=== PATIENT | male | born 1950 | race Caucasian/White ===

== ENCOUNTER 2023-01-06 08:08 | Outpatient (REF) | payer MEDICARE, SELFPAY ==
--- NOTE | ~2023-01-06 | FL_ITS ---
EXAMINATION: XR FLUOROSCOPY BARIUM SWALLOW WITH AIR CLINICAL INFORMATION: Dysphasia COMPARISON: None TECHNIQUE: Fluoroscopic air contrast barium swallow examination was performed utilizing standard techniques with thin and thick barium and effervescent granules. Numerous spot images were obtained. FINDINGS: Lateral cine images of the oropharynx and hypopharynx demonstrate normal swallow mechanism with normal epiglottic inversion and soft palate elevation. On the third swallow, there was laryngeal penetration of thick barium to the level of the false cords, and eventually the glottis/true cords. No subglottic aspiration seen. No nasopharyngeal reflux present. Hypopharyngeal structures appear normal without evidence of mass or diverticulum. There was no significant cricopharyngeal achalasia. Dual and single contrast images of the esophagus demonstrate normal caliber, contour, and mucosal pattern. No evidence of stricture, mass, or ulcerations identified. Primary peristaltic wave was normal, however followed by numerous tertiary nonpropulsive contractions consistent with presbyesophagus. Small type I hiatus hernia identified. Episodic mild gastroesophageal reflux was noted during the examination to the level of the aortic arch. Dual contrast and single contrast images of the stomach demonstrated normal contour and mucosal pattern without evidence of mass, ulceration, or other abnormality. Contrast freely passed into the gastric antrum and duodenal bulb without delay. Single and air-contrast images of the duodenal bulb demonstrate no abnormality. The duodenal sweep has a normal appearance, course, and mucosal fold appearance. The imaged proximal jejunum has a normal fold pattern and caliber. FLUOROSCOPY TIME: 3.9 minutes Number of Spot Images: 61 DOSE AREA PRODUCT: 52.6-9 uGy-m2 (microgray-meter squared) FL/FL barium swallow with air IMPRESSION: 1. Mild laryngeal penetration and glottic aspiration noted on thick barium, only on the third swallow. No subglottic aspiration noted. 2. Esophagus normal aside from moderate presbyesophagus. Small type I hiatus hernia noted. 3. Mild/episodic gastroesophageal reflux noted during the course of the examination. 4. Normal-appearing stomach, duodenal bulb, duodenal sweep, and proximal small bowel.
== END 2023-01-06 08:09 | disposition home or self-care (01) ==
LOC: HO.XRAY 08:08
PROVIDERS: PCP Internal Medicine; Visit Provider Otolaryngology
DX: R13.10 Dysphagia, unspecified (principal)
CPT/HCPCS: 74221

== ENCOUNTER → 2023-01-06 08:14 | Outpatient (BNV) | payer MEDICARE, SELFPAY | PROVIDERS: PCP Internal Medicine; Visit Provider Radiology Diagnostic Radiology | DX: R13.10 Dysphagia, unspecified (principal) | CPT/HCPCS: 74221 ==

== ENCOUNTER 2023-12-10 10:25 | Emergency (ER) | payer MEDICARE, SELFPAY ==
[2023-12-10 10:28] VITALS: BP 173/90; PULSE 84; RESP 16; TEMP 36.2; O2SAT 95; BMI 31.2
[2023-12-10 10:58] LABS: MANUAL DIFF FLAG NO
[2023-12-10 11:05] LABS: Basophils Absolute Auto 0.1 X10*3/uL (0.0-0.2); Basophils Percent Auto 0.8 % (0-2); Eosinophils Absolute Auto 0.2 X10*3/uL (0.0-0.4); Hematocrit 43.3 % (42.0-52.0); Hemoglobin 14.8 g/dl (14.0-18.0); Imm Gran Abs Auto 0.03 X10*3/uL (0.00-0.03); Imm Gran Pct Auto 0.4 % (0.0-0.4); Lymphocytes Absolute Auto 1.7 X10*3/uL (1.2-4.9); Lymphocytes Percent Auto 23.5 % (20-40); Mean Corpuscular HGB Conc 34.2 g/dl (31.0-36.0); Mean Corpuscular Hemoglobin 30.1 pg (27.0-33.0); Mean Corpuscular Volume 88.2 fL (80.0-98.0); Monocytes Absolute Auto 0.7 X10*3/uL (0.1-1.2); Monocytes Percent Auto 10.1 % (2-11); Neutrophils Absolute Auto 4.6 x10*3/uL (2.0-8.3); Neutrophils Percent Auto 62.2 % (45-73); Platelet Count 134 X10*3/uL (160-400); Red Blood Count 4.91 X10*6/uL (4.60-5.80); Red Cell Distribution Width 13.8 % (11.0-16.0); White Blood Count 7.3 X10*3/uL (4.8-10.8)
[2023-12-10 11:07] LABS: Prothrombin Time 11.9 SEC (11.1-13.3)
[2023-12-10 11:09] LABS: Partial Thromboplastin Time 24.7 SEC (26.0-36.8)
[2023-12-10 11:23] LABS: Alanine Aminotransferase 34 U/L (0-40); Albumin Level 3.9 g/dL (3.5-5.0); Alkaline Phosphatase 78 U/L (39-117); Anion Gap 11 (12-20); Aspartate Amino Transferase 30 U/L (5-37); Bilirubin Direct 0.2 mg/dL (0.0-0.5); Bilirubin Total 0.7 mg/dL (0.0-1.0); Blood Urea Nitrogen 12 mg/dL (9-16); Calcium 9.8 mg/dL (8.4-10.2); Carbon Dioxide 27 mmol/L (22-29); Chloride 106 mmol/L (96-108); Creatinine Clr Calc Pharmacy 86.2; Estimated Glomerular Filt Rate > 60; Glucose Random 144 mg/dL (60-115); Magnesium 1.8 mg/dL (1.6-2.6); Potassium 4.3 mmol/L (3.3-5.1); Sodium 140 mmol/L (135-145); Total Protein 8.2 g/dL (6.5-8.0)
--- NOTE | 2023-12-10 12:11 | ED_ITS ---
HPI - Wound/Laceration General Chief Complaint: Wound/Laceration Stated Complaint: bleeding testicles Time Seen by Provider: 12/10/23 11:33 Source: patient and family Mode of arrival: ambulatory Limitations: no limitations History of Present Illness HPI narrative: 73-year-old male presents from home he states he was sitting when he started to notice head and reassess with that he had urinated on himself he knows that it was blood he plays pressure but it continued to bleed so he found the came into the ER bleeding has stopped you patient states he is not on any blood thinners he denies any trauma to the area he denies chest pain cough fever nausea vomiting or diarrhea. Related Data Allergies Allergy/AdvReac Type Severity Reaction Status Date / Time No Known Allergies Allergy Verified 12/10/23 10:29 Review of Systems 2 Review of Systems: Review of systems: General: Patient denies any fever chills recent illness or falls Musculoskeletal: Denies back pain or body aches or other injuries HEENT: denies headache, runny nose, ear pain Respiratory: denies shortness of breath, cough Cardiovascular: no chest pain or palpitations : denies dysuria, frequency Abdomen: no nausea vomiting denies abdominal pain Extremities: no swelling, no pain Skin: no diaphoresis Yes all other systems are reviewed and are negative PMFSH Social History Social History Advance Directives: No Physical Exam 2 Vital Signs: Vital Signs: Last Vital Signs Temp 97.2 F 12/10/23 10:28 Pulse 84 12/10/23 10:28 Resp 16 12/10/23 10:28 BP 173/90 H 12/10/23 10:28 Pulse Ox 95 12/10/23 10:28 O2 Del Method Room Air 12/10/23 10:28 BMI result Body Mass Index 31.2 General: Well-appearing well-nourished in no signs of distress HEENT: Normocephalic atraumatic Neck: No signs of JVD, no masses no tenderness or lymphadenopathy Cardiovascular: Regular rate and rhythm Respiratory: Clear to auscultation bilaterally Abdomen: Soft nontender no masses testicles examined there are multiple varicose veins nontender there was no more bleeding Extremities: Normal pedal pulses no signs of edema Skin: Dry warm no rashes Back: No tenderness full ROM Medical Decision Making Lab Data 12/10/23 10:54 12/10/23 10:54 Labs: Lab Results 12/10/23 Range/Units 10:54 WBC 7.3 (4.8-10.8) X10*3/uL RBC 4.91 (4.60-5.80) X10*6/uL Hgb 14.8 (14.0-18.0) g/dl Hct 43.3 (42.0-52.0) % MCV 88.2 (80.0-98.0) fL MCH 30.1 (27.0-33.0) pg MCHC 34.2 (31.0-36.0) g/dl RDW 13.8 (11.0-16.0) % Plt Count 134 L (160-400) X10*3/uL MPV 11.0 (9.4-12.4) fL Immature Gran % (Auto) 0.4 (0.0-0.4) % Neut % (Auto) 62.2 (45-73) % Lymph % (Auto) 23.5 (20-40) % [place] % (Auto) 10.1 (2-11) % Eos % (Auto) 3.0 (0-4) % Baso % (Auto) 0.8 (0-2) % Lymph # (Auto) 1.7 (1.2-4.9) X10*3/uL [place] # (Auto) 0.7 (0.1-1.2) X10*3/uL Eos # (Auto) 0.2 (0.0-0.4) X10*3/uL Baso # (Auto) 0.1 (0.0-0.2) X10*3/uL Abs Immat Gran (auto) 0.03 (0.00-0.03) X10*3/uL Absolute Neuts (auto) 4.6 (2.0-8.3) x10*3/uL Absolute Nucleated RBC 0.000 (0.0-0.012) X10*3/uL Nucleated RBC % (auto) 0.0 (0.0-0.2) /100WBC PT 11.9 (11.1-13.3) SEC INR 1.0 (0.9-1.1) APTT 24.7 L (26.0-36.8) SEC Sodium 140 (135-145) mmol/L Potassium 4.3 (3.3-5.1) mmol/L Chloride 106 (96-108) mmol/L Carbon Dioxide 27 (22-29) mmol/L Anion Gap 11 L (12-20) BUN 12 (9-16) mg/dL Creatinine 0.94 (0.5-1.4) mg/dL Estim Creat Clear Calc 86.2 Estimated GFR > 60 Random Glucose 144 H (60-115) mg/dL Calcium 9.8 (8.4-10.2) mg/dL Magnesium 1.8 (1.6-2.6) mg/dL Total Bilirubin 0.7 (0.0-1.0) mg/dL Direct Bilirubin 0.2 (0.0-0.5) mg/dL AST 30 (5-37) U/L ALT 34 (0-40) U/L Alkaline Phosphatase 78 (39-117) U/L Total Protein 8.2 H (6.5-8.0) g/dL Albumin 3.9 (3.5-5.0) g/dL Procedures Procedure Narrative Procedure Narrative: I could not identify the exact spot where the bleeding had come from I did clean the area with saline and then he has Dermabond over all the varicose veins to make sure no more bleeding would resume bleeding and already stopped the time I saw the patient. Discharge Plan Discharge Clinical Impression: Bleeding from varicose vein Patient Disposition: Home, Self-Care Instructions: Phlebitis (ED) Additional Instructions: You were seen today for bleeding from a varicose vein and your scrotum. The bleeding. At the time he arrived here. You do have sent everything was normal you had some Dermabond placed over the wound and the bleeding was resolved. If you have worsening bleeding or any other concerns please return to the emergency department. Print Language: Estonian
[2023-12-10 12:19] VITALS: BP 160/79; PULSE 73; RESP 16; TEMP 36.8; O2SAT 95
[2023-12-10 12:52] VITALS: BP 160/79; PULSE 73; RESP 16; TEMP 36.8; O2SAT 95
== END 2023-12-10 12:52 | disposition home or self-care (01) ==
PROVIDERS: Physician Assistant; Emergency Provider Student in an Organized Health Care Education/Training Program; PCP Internal Medicine
DX: N50.1 Vascular disorders of male genital organs (principal)
CPT/HCPCS: 36415; 80048; 80076; 83735; 85025; 85610; 85730; 99283

== ENCOUNTER 2024-01-06 13:26 | Outpatient (REF) | payer MEDICARE, SELFPAY ==
[2024-01-06 14:58] LABS: Erythrocyte Sedimentation Rate 23 MM/HR (0-15)
== END 2024-01-06 13:27 | disposition home or self-care (01) ==
LOC: HO.LAB 13:26
PROVIDERS: PCP Internal Medicine; Visit Provider Psychiatry & Neurology Neurology
DX: M33.20 Polymyositis, organ involvement unspecified (principal)
CPT/HCPCS: 36415; 82550; 85652

== ENCOUNTER 2024-02-04 09:54 | Outpatient (REF) | payer MEDICARE, SELFPAY ==
--- NOTE | ~2024-02-04 | MR_ITS ---
EXAMINATION: MR BRAIN WITHOUT CONTRAST CLINICAL INFORMATION: Brain lesion COMPARISON: None available. TECHNIQUE: MRI of the brain was obtained using routine sequences without contrast. FINDINGS: No acute intracranial hemorrhage or infarct. Scattered and confluent periventricular and deep white matter T2/FLAIR hyperintensities, nonspecific however commonly seen with small vessel ischemic disease. Mild global cerebral atrophy. No midline shift or hydrocephalus. No acute extra-axial fluid collections. The osseous structures are unremarkable. There is a well-circumscribed lesion involving the left parietal scalp tissues. The pituitary gland, pineal gland and remaining midline structures are unremarkable. Sequelae of bilateral lens replacement. Otherwise, no acute orbital pathology. Minimal mucosal thickening of the paranasal sinuses. The mastoid air cells are clear. MR/MR head/brain wo con IMPRESSION: 1. No acute intracranial abnormalities. 2. Chronic microangiopathy. 3. Well-circumscribed cystic lesion involving the left parietal scalp tissues most suggestive of an epidermal inclusion cyst. Electronically signed by: Javon Pak MD 03/28/2024 07:27 PM [facility]
== END 2024-02-04 09:55 | disposition home or self-care (01) ==
LOC: HO.MRI 09:54
PROVIDERS: PCP Internal Medicine; Visit Provider Psychiatry & Neurology Neurology
DX: G93.9 Disorder of brain, unspecified (principal)
CPT/HCPCS: 70551

== ENCOUNTER 2025-01-20 01:31 | Inpatient (IN) | payer MEDICARE, SELFPAY ==
[2025-01-20] VITALS (28 sets, daily range): BP systolic 114–173; BP diastolic 54–99; PULSE 43–123; RESP 17–37; TEMP 36.4–37.5; O2SAT 86–106; BMI 30.5; BMI 31.5
--- NOTE | 2025-01-20 | ECG_ITS ---
Test Reason : CP/COVID POSITIVE Blood Pressure : */* mmHG Vent. Rate : 110 BPM Atrial Rate : 110 BPM P-R Int : 166 ms QRS Dur : 90 ms QT Int : 326 ms P-R-T Axes : 40 -40 76 degrees QTcB Int : 441 ms Sinus tachycardia Left axis deviation Anterolateral infarct (cited on or before 20-Jan-2025) Abnormal ECG When compared with ECG of 20-Jan-2025 01:46, No significant change was found Referred By: Darby Plaza Electronically Signed By: CATRACHITO PYLE
--- NOTE | ~2025-01-20 | CT_ITS ---
CLINICAL HISTORY: PE CT angiography chest with contrast. 3D Postprocessing. Comparison: None provided Findings: The heart is normal size. RV/LV ratio is normal. The thoracic aorta is normal caliber. No acute pulmonary embolus. Nonhomogeneous, solid 7.7 cm left thyroid lobe nodule. Further characterization with ultrasound recommended. A few subsegmental lingular and right basilar atelectasis/infiltrates. Left basilar atelectasis. Query periesophageal varices in the vicinity of the GE junction. No acute fractures. IMPRESSION: 1. No PE. 2. Nonhomogeneous, solid 7.7 cm left thyroid lobe nodule. Further characterization with ultrasound recommended. 3. Query periesophageal varices in the vicinity of the GE junction. 4. A few subsegmental lingular and right basilar atelectasis/infiltrates. Left basilar atelectasis. This document has been electronically signed by: Belle Yates MD on 01/20/2025 07:17:40
--- NOTE | ~2025-01-20 | US_ITS ---
EXAMINATION: US THYROID HISTORY: Thyroid Nodule TECHNIQUE: Real-time grayscale ultrasound imaging was performed and images were reviewed. COMPARISON: Correlation is made with a chest CT dated 01/20/2025. FINDINGS: SIZE: The right thyroid lobe measures 2.8 x 1.1 x 1.1 cm. The left thyroid lobe measures 8.8 x 4.4 x 5.9 cm. The isthmus measures 7 mm. FLOW: Flow to the gland is hypervascular on the left. ECHOGENICITY: The echotexture of the gland is heterogeneous on the left. NODULES: There is an ill-defined 1.3 x 0.5 x 0.5 cm hypoechoic area at the upper pole of the right thyroid lobe which does not clearly represent a nodule. There is a dominant nodule on the left with imaging characteristics as described below: Nodule #: 1 Location: The portion of the left thyroid lobe measuring 7.3 x 4.4 x 5.9 cm. Shape: Wider than tall (0 points) Margins: Ill-defined (0 points) Echotexture: Isoechoic (1 point) Composition: Solid (2 points) Calcifications: None (0 points) Total points: 3 TIRADS: TR3: Mildly suspicious. US/US thyroid IMPRESSION: Dominant nodule in the left thyroid lobe as described. According to ACR TI-RADS guidelines, ultrasound-guided fine-needle aspiration is recommended. ACR TI-RADS Guidelines TR1 (0 points): Benign. No follow-up or biopsy required TR2 (2 points): Not Suspicious. No biopsy or follow up indicated TR3 (3 points): Mildly Suspicious. FNA if >= 2.5 cm, Follow if >= 1.5 cm TR4 (4-6 points): Moderately Suspicious. FNA if >= 1.5 cm, Follow if >= 1.0 cm TR5 (>=7 points): Highly Suspicious. FNA if >= 1.0 cm, Follow if >= 0.5 cm Electronically signed by: Juma Rao MD 01/23/2025 07:05 AM EDT
--- NOTE | ~2025-01-20 | XR_ITS ---
CLINICAL HISTORY: sob 1 view chest x-ray Comparison: None provided Findings: Normal size heart. No acute fracture. Small left-sided effusion blunts the costophrenic sulcus with mild left basilar subsegmental atelectasis or infiltrate. IMPRESSION: Small left-sided effusion blunts the costophrenic sulcus with mild left basilar subsegmental atelectasis or infiltrate. This document has been electronically signed by: Marco Pompa MD, PHD on 01/20/2025 04:26:24
[2025-01-20 02:04] LABS: Hematocrit 48.8 % (42.0-52.0); Hemoglobin 16.9 g/dl (14.0-18.0); Imm Gran Abs Auto 0.03 X10*3/uL (0.00-0.03); Imm Gran Pct Auto 0.3 % (0.0-0.4); Lymphocytes Absolute Auto 1.4 X10*3/uL (1.2-4.9); MANUAL DIFF FLAG SCAN; Mean Corpuscular HGB Conc 34.6 g/dl (31.0-36.0); Mean Corpuscular Hemoglobin 29.9 pg (27.0-33.0); Mean Corpuscular Volume 86.4 fL (80.0-98.0); NRBC Abs Auto 0.000 X10*3/uL (0.0-0.012); NRBC Pct Auto 0.0 /100WBC (0.0-0.2); Platelet Count 157 X10*3/uL (160-400); Red Blood Count 5.65 X10*6/uL (4.60-5.80); SCAN SMEAR FLAG 1; White Blood Count 10.9 X10*3/uL (4.8-10.8)
[2025-01-20 02:04] LABS: Venous Blood Gas Refer to POC result
[2025-01-20 02:05] LABS: VBG HCO3 29 mmol/L (22-26); VBG O2 % Saturation 60.0 %
[2025-01-20 02:11] LABS: INTERNATIONAL NORM RATIO 1.1 (0.9-1.1); Prothrombin Time 13.0 SEC (10.9-12.4)
[2025-01-20 02:19] LABS: Alanine Aminotransferase 56 U/L (0-40); Albumin Level 4.6 g/dL (3.5-5.0); Alkaline Phosphatase 77 U/L (39-117); Anion Gap 16 (12-20); Aspartate Amino Transferase 52 U/L (5-37); Blood Urea Nitrogen 19 mg/dL (9-16); Calcium 9.0 mg/dL (8.4-10.2); Carbon Dioxide 28 mmol/L (22-29); Chloride 104 mmol/L (96-108); Creatinine Clr Calc Pharmacy 66.9; Estimated Glomerular Filt Rate > 60; Potassium 3.8 mmol/L (3.3-5.1); Sodium 144 mmol/L (135-145); Total Protein 8.6 g/dL (6.5-8.0)
[2025-01-20 02:26] LABS: NT Pro B Type Natriuretic Pept 59.2 pg/mL (<300)
--- NOTE | 2025-01-20 02:32 | ED_ITS ---
HPI - General Adult General Chief complaint: Dyspnea Stated complaint: + COVID Time Seen by Provider: 01/20/25 01:52 Source: patient Mode of arrival: ambulatory Limitations: no limitations History of Present Illness ED Provider: Dr. Plaza [facility] narrative: 74-year-old male history of lung cancer status post lumpectomy presented hospital today for evaluation of shortness of breath. Upon arrival to the room patient was hypoxic. He is satting in the mid 80s. Respiratory rate in the upper 40s. Patient was diagnosed with COVID 2 days ago has been taking Paxlovid. stated that patient was getting very short of breath when he ambulates and move around. It took a while for for them to get him to the ER. Related Data Allergies Allergy/AdvReac Type Severity Reaction Status Date / Time No Known Allergies Allergy Verified 01/20/25 01:45 Review of Systems 2 Review of Systems: Pertinent review of systems as mentioned in HPI. All other system otherwise negative. [facility] Past Medical History [facility] Narrative: Medical history as mentioned in [facility] Social History Social History Smoked in Last 30 Days: No Advance Directives: No Advance Directives Information Provided: Yes Physical Exam ED Exam Exam: General: Appears to be in respiratory distress Head: Normacephalic, atraumatic ENT: oral mucosa moist, neck supple, no tracheal deviation Cardiovascular: Tachycardic rate, regular rhythm, no murmurs, rubbing, gallops Respiratory: Diminished lung sounds bilaterally we will rales Gastrointestinal: Soft, non distended, non tender, non guarding Extremities: No limb pain or swelling, no calf tenderness Neurological: Awake and alert, no facial droop noted Skin: Warm and dry Psychiatric: Appropriate mood and thoughts Vital Signs: Vital Signs - 24 hr 01/20/25 01:35 01/20/25 02:00 01/20/25 02:08 Temperature 98.4 F 98.7 F Pulse Rate 102 H 102 H Respiratory Rate 24 H 26 H 22 H Blood Pressure 169/89 H 146/85 H Pulse Oximetry 86 L 92 Oxygen Delivery Method Room Air High Flow Nasal Cannula Oxygen Flow Rate 45 Fraction of Inspired Oxygen 45 01/20/25 02:08 01/20/25 03:05 01/20/25 03:32 Temperature 98.8 F Pulse Rate 102 H 110 H Respiratory Rate 22 H 26 H 20 Blood Pressure 144/84 H Pulse Oximetry 95 Oxygen Delivery Method High Flow Nasal Cannula Oxygen Flow Rate 50 Fraction of Inspired Oxygen 50 01/20/25 06:25 Temperature 99.5 F Pulse Rate 123 H Respiratory Rate 37 H Blood Pressure 173/99 H Pulse Oximetry 95 Oxygen Delivery Method High Flow Nasal Cannula Oxygen Flow Rate Fraction of Inspired Oxygen BMI result Body Mass Index 30.5 Medications Administered Discontinued Medications Generic Name Dose Route Start Last Admin Trade Name Freq PRN Reason Stop Dose Admin Albuterol Sulfate 5 mg/ 0 mg 01/20/25 01:58 01/20/25 02:43 Albuterol/Ipratropium 3 ml INHALE 01/20/25 01:59 1 each ONCE ONE Administration Iohexol 65 ml 01/20/25 06:02 01/20/25 06:03 Iohexol 350 Mg/Ml 100 Ml Infus..Btl IV 01/20/25 06:03 65 ml ONCE ONE Administration Morphine Sulfate 4 mg 01/20/25 04:16 01/20/25 05:06 Morphine Sulfate 4 Mg/Ml Cartridge IVPUSH 01/20/25 04:17 Not Given ONCE ONE Protocol Medical Decision Making Medical Decision Making MDM Narrative: This is a 74-year-old male history of lung cancer status post lobectomy 9 years ago presented hospital today for respiratory distress. Suspect patient has viral pneumonia COVID. Patient is likely has progression of COVID. However given his COVID status we will need to rule out PE history of lung cancer as well. CTA of the chest will be obtained. Patient does have tachycardia. And respiratory rate in the upper 40s. Patient is started on high-flow nasal cannula. We will obtain lab work for a lactic acid, CBC chemistry. Received patient's lab work. Patient has slight leukocytosis 10.9, patient is COVID positive. Patient respiratory status is likely secondary to COVID infection. Patient's lactic acid is not elevated. At 06:28 01/20/25 Infection was suspected at this time. IV Zosyn, IV azithromycin will be given the patient. Patient has remained tachypneic on high-flow nasal cannula at 45 L. We will plan to transition to BiPAP. Patient was placed on BiPAP. His respiratory rate has improved to 30. The patient's satting at 94% at this time. Given patient's presentation and respiratory status. Patient will be admitted to the ICU for further close airway watch. I did personally reviewed the CTA of the chest. I do not identify any large pulmonary embolism. Official read is currently pending. Differential Diagnosis Differential Diagnoses: The differential diagnosis associated with the presentation includes COVID, influenza, viral pneumonia, lung cancer, PE Admission/Observation Consideration of admission/observation: Escalation of care including admission/observation considered Consult Healthcare Provider Management of the patient was discussed with: Pre Press Proofer (ICU) Lab Data MDM Lab Attestation statement: I reviewed the patient's lab results. 01/20/25 01:56 01/20/25 01:56 Labs: Lab Results 01/20/25 01/20/25 01/20/25 Range/Units 01:56 02:01 03:22 WBC 10.9 H (4.8-10.8) X10*3/uL RBC 5.65 (4.60-5.80) X10*6/uL Hgb 16.9 (14.0-18.0) g/dl Hct 48.8 (42.0-52.0) % MCV 86.4 (80.0-98.0) fL MCH 29.9 (27.0-33.0) pg MCHC 34.6 (31.0-36.0) g/dl RDW 13.8 (11.0-16.0) % Plt Count 157 L (160-400) X10*3/uL MPV 11.1 (9.4-12.4) fL Immature Gran % (Auto) 0.3 (0.0-0.4) % Neut % (Auto) 72.5 (45-73) % Lymph % (Auto) 12.6 L (20-40) % [place] % (Auto) 14.4 H (2-11) % Eos % (Auto) 0.0 (0-4) % Baso % (Auto) 0.2 (0-2) % Lymph # (Auto) 1.4 (1.2-4.9) X10*3/uL [place] # (Auto) 1.6 H (0.1-1.2) X10*3/uL Eos # (Auto) 0.0 (0.0-0.4) X10*3/uL Baso # (Auto) 0.0 (0.0-0.2) X10*3/uL Abs Immat Gran (auto) 0.03 (0.00-0.03) X10*3/uL Absolute Neuts (auto) 7.9 (2.0-8.3) x10*3/uL Absolute Nucleated RBC 0.000 (0.0-0.012) X10*3/uL Nucleated RBC % (auto) 0.0 (0.0-0.2) /100WBC Smear Tech's Comments VERIFIED PT 13.0 H (10.9-12.4) SEC INR 1.1 (0.9-1.1) VBG pH 7.35 (7.32-7.43) VBG pCO2 52 mmHg VBG pO2 40 mmHg VBG HCO3 29 H (22-26) mmol/L VBG O2 Saturation 60.0 % VBG Base Excess 2.7 mmol/L Sodium 144 (135-145) mmol/L Potassium 3.8 (3.3-5.1) mmol/L Chloride 104 (96-108) mmol/L Carbon Dioxide 28 (22-29) mmol/L Anion Gap 16 (12-20) BUN 19 H (9-16) mg/dL Creatinine 1.18 (0.5-1.4) mg/dL Estim Creat Clear Calc 66.9 Estimated GFR > 60 Random Glucose 187 H (60-115) mg/dL Lactic Acid 1.7 (0.5-2.0) mmol/L Calcium 9.0 D (8.4-10.2) mg/dL Total Bilirubin 0.9 (0.0-1.0) mg/dL AST 52 H (5-37) U/L ALT 56 H (0-40) U/L Alkaline Phosphatase 77 (39-117) U/L Troponin I High Sens 11.6 (<3.5-35.0) ng/L NT-Pro-B Natriuret Pep 59.2 (<300) pg/mL Total Protein 8.6 H (6.5-8.0) g/dL Albumin 4.6 (3.5-5.0) g/dL Influenza Type A (PCR) NEGATIVE (Negative) Influenza Type B (PCR) NEGATIVE (Negative) RSV RNA Qual (PCR) NEGATIVE (Negative) SARS-CoV-2 RNA (RT-PCR) POSITIVE A (Negative) Independent Interpretation I performed an independent interpretation of an: Plain X-Ray and CT Scan Radiology Impression Discussion of test interpretation with radiology: I have reviewed the radiologist's reading. Critical Care Time Critical Care Time Critical Care Time: Yes Total Critical Care Time: 55 Attestation: Time is exclusive of separately billable procedures. Time includes: direct patient care, patient reassessment, coordination of patient care, interpretation of data (laboratory data, pulse oximetry, arterial blood gases and chest xrays), review of patient's medical records, medical consultation and documentation of patient care. Procedures excluded from critical care time: central intravenous line placement and electrocardiography. Discharge Plan Discharge Clinical Impression: COVID-19, Respiratory failure Patient Disposition: Admitted As Inpatient Print Language: Slovak
[2025-01-20] MEDS: Albuterol Sulfate 5 MG, Albuterol/Iprat 2.5/0.5MG 3 ML 3 ML INHALE (02:43)
[2025-01-20 02:44] LABS: Resp Syncy Virus RNA Qual PCR NEGATIVE (Negative); SARS COV2 PCR INHOUSE POSITIVE (Negative)
--- OUTSIDE RECORDS SUMMARY | 2025-01-20 02:47 | XMS_ITS | Clinical Summary ---
Author Organization [facility] Address [address] [place] [address] Phone Care Team Providers Care [employer]ed [employer] Laminator Name Role Phone Stephen Peguero MD Primary Care Provider [phone] Allergies Active Allergy Reactions Criticality Noted Date Comments Duloxetine Hcl 11/16/2015 ? syncope Glipizide 11/15/2015 Syncope? Lactose Diarrhea Low 10/16/2021 Milk Containing Products (Dairy) Diarrhea 09/2012 Algwnxi-Rjv-Mdm Reductase Inhibitors Other Medium 12/24/2016 Myopathy Tilactase Diarrhea Low 05/03/2018 Medications aspirin 81 mg EC tablet Take 1 Tab by mouth daily. 3 Active blood-glucose meter (FREESTYLE LITE METER [facility]) Use to check BS daily 2 Active cholecalcifero l (VITAMIN D-3) 50 mcg (2,000 unit) tablet Take 0.5 tablets (1,000 Units total) by mouth 1 (one) time each day. 4 Active flash glucose sensor (FREESTYLE KARLA 2 SENSOR [facility]) 1 Device by Does not apply route every 14 days. 3 Active FREESTYLE LANCETS [facility] 2 Active blood sugar diagnostic (FreeStyle Lite Strips) test strip Use to check BS daily 3 Active insulin syringe-needle U-100 1 mL 31 gauge x 5/16 syringe Use 4 needles per day 4 Active insulin aspart, niacinamide, (Fiasp FlexTouch U-100 Insulin) 100 unit/mL (3 mL) injection pen INJECT SUBCUTANEOUSLY 3 TIMES A DAY WITH MEALS PER SCALE: 100-150 14 UNITS, 151-200 15 UNITS, 201-250 16 UNITS, 251-300 17 UNITS, 301-350 18 UNITS, 351-400 19 UNITS. 45 mL 5 5 Active multivitamin with minerals tablet Take 1 tablet by mouth 1 (one) time each day. Active insulin glargine,hum.r ec.anlog (Basaglar KwikPen U-100 Insulin) 100 unit/mL (3 mL) injection pen Inject 70 Units into the skin daily. 45 mL 11 5 Active Ozempic 1 mg/dose (4 mg/3 mL) injection pen INJECT 1MG SUBCUTANEOUSLY ONCE A WEEK 9 mL 1 5 Active Active Problems Problem Noted Date Diagnosed Date Elevated LFTs 12/31/2020 Overview (02/18/2024): US liver pending. Thyroid nodule 12/30/2016 Overview (02/18/2024): Last Assessment & Plan: Fine-needle aspiration 08/13/16 benign. Follow-up ultrasound maximum dimension increased to 7.5 cm from 5.1 cm on ultrasound of 07/02/2018. I recommended rebiopsy but the patient declines at the current time. 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 Overview (02/18/2024): HMG CoA reductase AB >200; rx IVIG Dr Santizo;CK 5000 11/20 Polymyositis ([facility] V24, [facility] V28) 10/11/19 17 Diabetes mellitus type 2 wit h neurological manifestations ([facility]/HCC V24, [facility]/HCC V28) 02/25/2016 Hypertension 08/01/2014 Pilar cyst 01/30/2014 Microalbuminuria 07/05/2012 DM (diabetes mellitus), type 2 with renal complications (CMS/HCC V24, CMS/HCC V28) 07/05/2012 Diabetic neuropathy (CMS/HCC V24, [facility] V28) 0 07/05/2012 Vertigo 06/02/2012 Depressive disorder 05/19/2006 Encounters Date Type Department Care Team Description 01/04/2025 9:00 AM EDT Consult Vascular Surgery - [place] [address] [place] [phone] Constance Villafuerte MD Venous insufficiency (chronic) (peripheral) (Primary Dx); Varicose veins of right lower extremity with pain 11/21/2024 1:30 PM EDT Office Visit Orthopedic Surgery [facility] [address] [facility] [address] [place] [phone] Jaskaran Arellano DPM Controlled type 2 diabetes mellitus with neuropathy ([facility] V24, [facility] V28) (Primary Dx); Arthritis of both feet; Ingrown right big toenail; Onychomycosis 11/09/2024 9:45 AM EDT Office Visit Endocrinology [address] [phone] Amber Rodriguez PA Diabetes mellitus type 2 with neurological manifestations ([facility] V24, [facility] V28) (Primary Dx); Secondary hypertension; Microalbuminuria; Thyroid nodule from Last 3 Months Immunizations Name Administration Dates Next Due Pneumococcal polysaccharide 23 valent (Pneumovax 23) 2yo and older 06/11/2012 Tdap Tetanus diptheria acell ular pertussis (Boostrix; Adacel) 7yo and older 07/05/2012 Surgical History Surgery Date Site/Laterality Comments TONSILLECTOMY PROCEDURE: HISTORICAL TONSILLECTOMY MULTIPLE TOOTH EXTRACTIONS PROCEDURE: HISTORICAL DENTAL EXTRACTION Medical History Medical History Date Comments Depressive disorder, not els ewhere classified 05/19/2006 DX:Depressive disorder, not elsewhere classified Vertigo 06/02/2012 DX:Vertigo Sinusitis 06/02/2012 DX:Sinusitis Hyperglycemia 06/02/2012 DX:Hyperglycemia Neuropathy, diabetic (CMS/HC C V24, [facility]/HCC V28) 07/05/2012 DX:Neuropathy, diabetic (HCC ) Myalgia 10/06/2012 DX:Myalgia Microalbuminuria 07/05/2012 DX:Microalbumin uria Diabetic neuropathy (CMS/HCC V24, CMS/HCC V28) 07/05/2012 DX:Diabetic neuropathy (HCC) Diabetes mellitus type 2 wit h neurological manifestations ([facility] V24, [facility] V28) 02/25/2016 DX:Diabetes mellitus type 2 with neurological manifestations (HCC) DM (diabetes mellitus), type 2 with renal complications (CMS/HCC V24, CMS/HCC V28) 07/05/2012 DX:DM (diabetes mellitus), t ype 2 with renal complications (HCC) 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 Family History Medical History Relation Name Comments No Known Problems Daughter 1 No Known Problems Daughter [address], stroke dece ased Diabetes Mother Other: heart Sister 1 heart condition No Known Problems Sister 2 No Known Problems Son Relation Name Status Comments Daughter 1 Alive Daughter 2 Alive Father Mother Sister 1 Sister 2 Alive Son Alive Social History Tobacco Use Types Packs/Day Years Used Date Smoking Tobacco: Never Smokeless Tobacco: Never Tobacco Cessation:Counseling Given: Not Answered Alcohol Use Standard Drinks/Week Comments No 0 (1 standard drink = 0.6 oz pur e alcohol) Sex and Gender Information Value Date Recorded Sex Assigned at Not on file Legal Sex Male 1:24 AM EST Gender Identity Not on file Sexual Orientation Not on file Obstetrics History Last Filed Vital Signs Vital Sign Reading Time Taken Comments Blood Pressure 147/82 01/04/2025 8:45 AM EDT Pulse 78 01/04/2025 8:45 AM EDT Temperature 36.3 C (97.3 F) 11/09/2024 10:02 AM EDT Respiratory Rate 15 07/26/2024 1:26 PM EDT Oxygen Saturation 98% 07/27/2024 9:42 AM EDT Inhaled Oxygen Concentration - - Weight 104 kg (229 lb) 01/04/2025 8:45 AM EDT Height 177.8 cm (5' 10 ) 01/04/2025 8:45 AM EDT Body Mass Index 32.86 01/04/2025 8:45 AM EDT Plan of Treatment Upcoming Encounters Date Type Department Care Team (Late st Contact Info) Description 01/24/2025 1:45 PM EDT Office Visit Orthopedic Surgery [place] [id number] [phone] Jaskaran Arellano, BESSIE 175 [facility] [address] [place] [phone] 02/16/2025 10:00 AM EDT Office Visit Adult Medicine [facility] [address] [place], [place] [phone] Chris Collier PA [address] [place], [place] 03/14/2025 8:30 AM EST Ancillary Procedure [facility] [address] [place] [phone] 04/05/2025 10:30 AM EST Office Visit Vascular Surgery - [place] [address] [place] [phone] Constance Villafuerte MD [address] [place] [phone] 05/12/2025 9:45 AM EST Office Visit Endocrinology [address] [phone] Amber Rodriguez PA [address] [place] [address] Health Maintenance Due Date Last Done Comments Diabetes: Annual Foot Exam 07/22/1961 Zoster Vaccines (1 of 2) 07/22/1970 RSV Immunization Adult Patients (1 - Risk 60-74 years 1-dose series) 2011 Pneumococcal Vaccine: 50+ Years (2 of 2 - PCV) 06/11/2013 06/11/2012 COVID-19 Vaccine (3 - Pfizer risk series) 10/19/2020 09/21/2020, 08/31/2020 Colorectal Cancer Screening: Stool Based Tests (FOBT/FIT) 04/06/2022 Social Influencers of Health Screening 04/06/2022 DTaP,Tdap,and Td Vaccines (2 - Td or Tdap) 07/05/2022 07/05/2012 Depression Screening 05/04/2024 12/07/2023 Falls Risk Assessment 12/06/2024 12/07/2023 Medicare Annual Wellness Visit 12/06/2024 12/07/2023 Influenza Vaccine (#1) 2025 Diabetes: Blood Sugar Control Test (HGBA1C) 05/12/2025 11/09/2024, 04/29/2024, 12/07/2023, Additional history exists Diabetes: Annual Retina Eye Exam 06/07/2025 06/07/2024, 02/20/2023 Diabetes: Annual Urine Albumin-Creatinine Ratio (uACR) 07/26/2025 07/26/2024, 07/27/2023 Diabetes: Annual GFR (Glomerular Filtration Rate) 07/26/2025 07/26/2024, 07/27/2023 Hypertension/CHF/CAD Annual BMP Blood Test 07/26/2025 07/26/2024, 07/27/2023 Cholesterol Screening (Lipid Panel) 07/26/2029 07/26/2024, 07/27/2023 Hepatitis C Screening Completed 04/02/2013 HIB Vaccines Aged Out No longer eligi ble based on patient's age to complete this topic HPV Vaccines Aged Out No longer eligi ble based on patient's age to complete this topic Hepatitis A Vaccines Aged Out No long er eligible based on patient's age to complete this topic Hepatitis B Vaccines Aged Out No long er eligible based on patient's age to complete this topic IPV Vaccines Aged Out No longer eligi ble based on patient's age to complete this topic MMR Vaccines Aged Out No longer eligi ble based on patient's age to complete this topic Meningococcal ACWY Vaccine Aged Out N o longer eligible based on patient's age to complete this topic Meningococcal B Vaccine Aged Out No l onger eligible based on patient's age to complete this topic RSV Immunization Patients Under 20 months Aged Out No longer eligible based on patient's age to complete this topic Varicella Vaccines Aged Out No longer eligible based on patient's age to complete this topic Procedures Procedure Name Priority Date/Time Associated Diagnosis Comments HEMOGLOBIN A1C Routine 11/09/2024 10:51 AM EDT Diabetes mellitus type 2 with neurological manifestations ([facility] V24, [facility] V28) MICROALBUMIN CREATININE URINE RATIO Routine 07/26/2024 2:33 PM EDT Type 2 diabetes mellitus with other diabetic kidney complication, with long-term current use of insulin ([facility] V24, [facility] V28) COMPREHENSIVE METABOLIC PANEL Routine 07/26/2024 2:33 PM EDT Type 2 diabetes mellitus with other diabetic kidney complication, with long-term current use of insulin ([facility] V24, [facility] V28) Primary hypertension LIPID PANEL WITH REFLEX TO DIRECT LDL Routine 07/26/2024 2:33 PM EDT Type 2 diabetes mellitus with other diabetic kidney complication, with long-term current use of insulin ([facility] V24, [facility] V28) DEPRESSION SCREENING Routine 12/07/2023 FALLS RISK ASSESSMENT Routine 12/07/2023 DIABETES EYE EXAM Routine 02/20/2023 HEPATITIS C SCREENING Routine 04/02/2013 from Last 3 Months or Most Recently Relevant to Health Maintenance Results * (ABNORMAL) Hemoglobin A1c (11/09/2024 10:51 AM EDT) Hemoglobin A1C 6.6(H) <6.5 % LAB CHEMISTRY METHOD 11/10/2024 12:02 PM EDT [facility] Mean Bld Glu Estim. 143 mg/dL LAB CHEMISTRY METHOD 11/10/2024 12:02 PM EDT [facility] Blood Venous blood specimen / Unknown Venipuncture / Unknown 11/09/2024 10:51 AM EDT 11/09/2024 10:51 AM EDT us Amber VO LAB BLOOD ORDERABLES Final Result [facility] [address] [place] [address], [place] [phone] * (ABNORMAL) Lipid panel with reflex to direct LDL (07/26/2024 2:33 PM EDT) Cholesterol 188 0 - 200 mg/dL LAB CHEMISTRY METHOD 07/26/2024 6:52 PM EDT [facility] Triglycerides 243(H) 0 - 150 mg/dL LAB CHEMISTRY METHOD 07/26/2024 6:52 PM EDT [facility] HDL 48 >=40 mg/dL LAB CHEMISTRY METHOD 07/26/2024 6:52 PM EDT [facility] LDL Calculated 91 0 - 100 mg/dL LAB CHEMISTRY METHOD 07/26/2024 6:52 PM EDT [facility] VLDL Cholesterol Alex 48.6 mg/dL LAB CHEMISTRY METHOD 07/26/2024 6:52 PM EDT [facility] Non HDL Chol. (LDL+VLDL) 140 <145 mg/dL LAB CHEMISTRY METHOD 07/26/2024 6:52 PM EDT [facility] Chol/HDL Ratio 3.9 0.0 - 4.4 LAB CHEMISTRY METHOD 07/26/2024 6:52 PM EDT [facility] Blood Venous blood specimen / Unknown Venipuncture / Unknown 07/26/2024 2:33 PM EDT 07/26/2024 2:33 PM EDT us Stephen Peguero MD LAB BLOOD ORDERABLES Final Resu lt [facility] [address] [place] [address], * (ABNORMAL) Microalbumin creatinine urine ratio (07/26/2024 2:33 PM EDT) Creatinine, Urine 183.0 mg/dL LAB CHEMISTRY METHOD 07/26/2024 5:37 PM EDT [facility] Microalb, Ur 191.0(H) 0.0 - 29.0 mg/L LAB CHEMISTRY METHOD 07/26/2024 5:37 PM EDT [facility] Microalb/Crea t Ratio 104(H) <30 mg/g creat LAB CHEMISTRY METHOD 07/26/2024 5:37 PM EDT [facility] Urine Urine specimen obtained by clean catch procedure / Unknown Non-blood Collection / Unknown 07/26/2024 2:33 PM EDT 07/26/2024 2:33 PM EDT us Stephen Peguero MD LAB URINE ORDERABLES Final Resu lt [facility] [address] [place] [address], [place] [phone] * (ABNORMAL) Comprehensive metabolic panel (07/26/2024 2:33 PM EDT) Sodium 138 133 - 145 mmol/L LAB CHEMISTRY METHOD 07/26/2024 6:52 PM [facility] Potassium 4.0 3.5 - 5.5 mmol/L LAB CHEMISTRY METHOD 07/26/2024 6:52 PM [facility] Chloride 104 96 - 110 mmol/L LAB CHEMISTRY METHOD 07/26/2024 6:52 PM [facility] CO2 30 21 - 32 mmol/L LAB CHEMISTRY METHOD 07/26/2024 6:52 PM [facility] Anion Gap 4 3 - 11 LAB CHEMISTRY METHOD 07/26/2024 6:52 PM [facility] Glucose 150(H) 70 - 100 mg/dL LAB CHEMISTRY METHOD 07/26/2024 6:52 PM [facility] BUN 16 5 - 25 mg/dL LAB CHEMISTRY METHOD 07/26/2024 6:52 PM [facility] Creatinine 0.92 0.70 - 1.30 mg/dL LAB CHEMISTRY METHOD 07/26/2024 6:52 PM [facility] eGFR 88 >=60 mL/min/1. 73m2 LAB CHEMISTRY METHOD 07/26/2024 6:52 PM T [facility] Comment:Calculation based on the Chronic Kidney Disease Epidemiology Collaboration (CKD-EPI) equation refit without adjustment for race. BUN/Creatinine Ratio 17.4 LAB CHEMISTRY METHOD 07/26/2024 6:52 PM T [facility] Calcium 9.0 8.5 - 10.5 mg/dL LAB CHEMISTRY METHOD 07/26/2024 6:52 PM [facility] AST (SGOT) 28 10 - 42 unit/L LAB CHEMISTRY METHOD 07/26/2024 6:52 PM [facility] ALT (SGPT) 49 10 - 60 unit/L LAB CHEMISTRY METHOD 07/26/2024 6:52 PM [facility] Alkaline Phosphatase 100 42 - 121 unit/L LAB CHEMISTRY METHOD 07/26/2024 6:52 PM [facility] Total Protein 8.1(H) 6.0 - 8.0 g/dL LAB CHEMISTRY METHOD 07/26/2024 6:52 PM [facility] Albumin 3.7 3.2 - 5.0 g/dL LAB CHEMISTRY METHOD 07/26/2024 6:52 PM [facility] Total Bilirubin 0.6 0.0 - 1.4 mg/dL LAB CHEMISTRY METHOD 07/26/2024 6:52 PM [facility] Blood Venous blood specimen / Unknown Venipuncture / Unknown 07/26/2024 2:33 PM EDT 07/26/2024 2:33 PM EDT us Stephen Peguero MD LAB BLOOD ORDERABLES Final Resu lt [facility] [address] [place] [address], * Hm Falls Risk Assessment (12/07/2023) Pathologist [facility] Falls Risk Assessment abstracted Historical Provider HEALTH MAINTENANCE Final Result * Depression Screening (12/07/2023) Depression Screening abstracted [facility] Provider HEALTH MAINTENANCE Final Result * Diabetes Eye Exam (02/20/2023) Pathologist [facility] Diabetes: Annual Retina Eye Exam abstracted Result [facility] Provider HEALTH MAINTENANCE Final Result * Hepatitis C Screening (04/02/2013) Hepatitis C Screening abstracted [facility] Provider HEALTH MAINTENANCE Final Result from Last 3 Months or Most Recently Relevant to Health Maintenance Insurance MEDICARE [facility] Care Teams [employer] L[employer] Relationship Specialty Start Date End Date Stephen Peguero MD [address] [place] [phone] PCP - General Internal Medicine 03/10/24
--- OUTSIDE RECORDS SUMMARY | 2025-01-20 02:47 | XMS_ITS | Clinical Summary ---
Author Organization [facility] Address [address] [place] [address] Care Team Providers Care Ostomy Nurse Name Role Phone Margaret Jeffries MD Primary Care Provider [phone] Allergies Active Allergy Reactions Criticality Noted Date Comments Duloxetine Hcl Other (See Comments) 05/03/2018 Pt unsure of reaction Tilactase Diarrhea Low 05/03/2018 Glipizide Diarrhea Medium 05/03/2018 Lactose Diarrhea Low 10/16/2021 Statins Other (See Comments) Medium 12/24/2016 Myopathy Medications Medication Sig Dispensed Refills Start Date End Date Status insulin glargine (LANTUS) injection 100 units/mL Inject under the skin every night at bedtime. 0 Active metFORMIN (GLUCOPHAGE-XR) ER 24 hr tablet 500 mg Take 500 mg by mouth every morning with breakfast. 0 Active SITagliptin (JANUVIA) 100 MG tablet Take 100 mg by mouth daily. 0 Active aspirin 81 MG chewable tablet Chew 1 tablet (81 mg total) by mouth daily. 0 Active Dulaglutide (TRULICITY SC) Inject under the skin. 0 Active insulin lispro (HumaLOG) injection 100 units/mL Inject under the skin. 0 Active omeprazole (PriLOSEC) 20 MG capsule 0 06/04/2023 Active Fiasp FlexTouch 100 UNIT/ML SOPN 0 09/14/2023 Active Active Problems Problem Noted Date Diagnosed Date Autoimmune necrotizing myopathy 10/16/2021 Adenocarcinoma of lung 08/30/2017 Overview: Overview: Right upper lobectomy, 07/15/2017 Pulmonary nodule, right 12/30/2016 Thyroid nodule 12/30/2016 Myopathy 12/24/2016 Overview: Overview: [place] to be statin induced by Dr. 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 Polymyositis 10/10/2016 Diabetes mellitus type 2 with neurological manif estations 02/25/2016 Hypertension 08/01/2014 Pilar cyst 01/30/2014 Diabetic neuropathy 07/05/2012 DM (diabetes mellitus), type 2 with renal compli cations 07/05/2012 Microalbuminuria 07/05/2012 Sinusitis 06/02/2012 Vertigo 06/02/2012 Depressive disorder 05/19/2006 Family History Medical History Relation Name Comments Diabetes Father Stroke Father Diabetes Mother Relation Name Status Comments Father Mother Sister 1 Sister 2 Alive Social History Tobacco Use Types Packs/Day Years Used Date Smoking Tobacco: Never Smokeless Tobacco: Never Alcohol Use Standard Drinks/Week Comments No 0 (1 standard drink = 0.6 oz pur e alcohol) Sex and Gender Information Value Date Recorded Sex Assigned at Male 01/08/2022 4:09 PM EDT Gender Identity Male 03/12/2023 10:38 AM EST Sexual Orientation Straight 03/12/2023 10 :38 AM EST Job Start Date Occupation Industry Not on file Not on file Not on file Last Filed Vital Signs Vital Sign Reading Time Taken Comments Blood Pressure 142/75 11/20/2023 10:07 AM EDT Pulse 78 11/20/2023 10:07 AM EDT Temperature 36.7 C (98 F) 11/20/2023 10:07 AM EDT Respiratory Rate 18 11/20/2023 10:07 AM EDT Oxygen Saturation 97% 11/20/2023 10:07 AM EDT Inhaled Oxygen Concentration - - Weight 104.1 kg (229 lb 8 oz) 11/20/2023 10:07 A M EDT Height 177.8 cm (5' 10 ) 05/07/2023 10:03 AM EST Body Mass Index 32.93 05/07/2023 10:03 AM EST Plan of Treatment Health Maintenance Due Date Last Done Comments Hepatitis C Screening 1950 COVID-19 Vaccine (#1) 07/22/1956 Depression Screening 1963 BMI Counseling 07/22/1969 Preventative Health Evaluation 07/22/1969 Shingrix-Zoster Vaccine (1 of 2) 07/22/1970 Colon Cancer Screening (Colonoscopy) 07/22/1996 RSV Adult > 60+ Yrs or Pregn ant (1 - Risk 60-74 years 1-dose series) 2011 Pneumococcal Vaccine (2 of 2 - PCV) 06/11/2013 06/11/2012 Fall Risk Assessment 07/22/2016 DTap / Tdap / Td (2 - Td or Tdap) 07/05/2022 013 Influenza Vaccine (#1) 2025 Hepatitis B Vaccines Aged Out No long er eligible based on patient's age to complete this topic RSV Ped < 20 months Aged Out No longe r eligible based on patient's age to complete this topic Care Teams Ostomy Nurse Relationship Specialty Start Date End Date Margaret Jeffries MD PCP - General Internal Medicine 01/03/20
--- OUTSIDE RECORDS SUMMARY | 2025-01-20 02:47 | XMS_ITS ---
[facility] Name [facility] Organization [facility] Care Team Organization Name Specialty Phone Email Start Date End Da te [facility] 12/21/2024 [facility] 01/08/2023 4 [facility] 03/11/2022 4
--- NOTE | 2025-01-20 03:08 | ECG_ITS ---
Test Reason : SOB Blood Pressure : */* mmHG Vent. Rate : 103 BPM Atrial Rate : 103 BPM P-R Int : 168 ms QRS Dur : 92 ms QT Int : 344 ms P-R-T Axes : 35 -26 84 degrees QTcB Int : 450 ms Sinus tachycardia Possible Anterior infarct , age undetermined Abnormal ECG No previous ECGs available Referred By: Darby Plaza Electronically Signed By: CATRACHITO PYLE
[2025-01-20 03:48] LABS: Troponin-I High Sensitivity 11.6 ng/L (<3.5-35.0)
--- NOTE | 2025-01-20 05:31 | HO.NURTONUR ---
Addendum entered by Sara Hernandez RN 01/20/25 06:21: pt suctioned by rt , about 10mls of clear thick mucus, pt tolerated well. Original Note: Pt from home with complaint of sob. pt tested positive for covid 2 days ago and has been taking paxlovid and feels symptoms have worsened. In triage pt was found to be 80's on room air, audible gurgling with inspiration and unable to speak in full sentences. pt is not O2 dependent at home. Hx of lung cancer with lobectomy 9 years ago. Pt placed on high flow with improvement. Pt initially not reporting any pain, during rounds pt began complaining of chest pain 7/10 and abdominal pain 6/10, provider made aware, repeat ekg (no new changes) and troponin (11.6) obtained and 4mg of morphine ordered but pt refused. While in the ED work up showed: LABS- SARS- positive A WBC- 10.9 PT- 13.0 VBG HCO3- 29 BUN- 19 AST- 52 ALT- 56 Chest XRAY: IMPRESSION: Small left-sided effusion blunts the costophrenic sulcus with mild left basilar subsegmental atelectasis or infiltrate. CT Chest: pending results Pt is a&ox3 and able to make his needs known, pt using bedside urinal and bed richards. pt has 20G IV in RAC and has been medicated per mar.
[2025-01-20] MEDS: iohexoL 350 MG/ML 100 ML INFUS..BTL 65 ML IV (06:03)
--- NOTE | 2025-01-20 08:18 | PC.NURSE ---
Assumed care of pt approx. 0700. Pt alert and oriented, bipap in place. Pt had moderate bowel movment using bed richards. IV abx per jul. Denies any pain at this time. Plan of care ongoing..
--- NOTE | 2025-01-20 08:26 | P.HPCC_ITS ---
History of Present Illness Date of Service: 01/20/25 Attending physician on admission: Patricia Webb Chief Complaint: COVID Patient is a 74 Y M w/ prior lung cancer s/p resection and recent diagnosis FANI started on paxlovid, presenting to ED on 01/20 w/ dyspnea, found to be in acute hypoxic respiratory failure, initially on HFNC, then placed on non- invasive Review of Systems 2 Review of Systems: Yes all other systems are reviewed and are negative PMFSH Social History Social History Smoked in Last 30 Days: No Advance Directives: No Advance Directives Information Provided: Yes Meds Allergies Allergy/AdvReac Type Severity Reaction Status Date / Time No Known Allergies Allergy Verified 01/20/25 01:45 Active Medications: Current Medications Dexamethasone Sodium Phosphate (Dexamethasone Sod Phosphate 4 Mg/Ml Vial) 6 mg IVPUSH DAILY NATAN Enoxaparin Sodium (Enoxaparin Sodium 40 Mg/0.4 Ml Syringe) 40 mg SUBCUT Q24H NATAN Remdesivir 200 mg/ Sodium (Chloride) 210 mls @ 105 mls/hr IV ONCE ONE Stop: 01/20/25 10:59 Remdesivir 100 mg/ Sodium (Chloride) 230 mls @ 115 mls/hr IV Q24H NATAN Stop: 01/24/25 10:59 Levofloxacin (Levofloxacin 750 Mg Tablet) 750 mg PO Q24H [facility] Home Medications ?Medication ?Instructions ?Recorded ?Confirmed ?Last Taken ?Type acetaminophen 325 mg tablet 650 mg PO TID PRN Fever Or Pain 01/20/25 01/20/25 Unknown History insulin aspart See Protocol subcut TIDAC 01/20/25 01/19/25 History (niacinamide)(U-100) 100 unit/mL(3 mL) subcutaneous pen (Fiasp FlexTouch U-100 Insulin) insulin glargine 100 unit/mL (3 70 unit subcut DAILY 0 01/20/25 01/20/25 01/19/25 History mL) subcutaneous pen (Basaglar KwikPen U-100 Insulin) semaglutide 1 mg/dose (4 mg/3 mL) 1 mg subcut GEORGES@0900 01/20/25 01/20/25 01/15/25 History subcutaneous pen injector (Ozempic) Physical Exam 2 Vital Signs: Vital Signs: Last Vital Signs Temp 99.5 F 01/20/25 06:25 Pulse 123 H 01/20/25 06:25 Resp 29 H 01/20/25 08:12 BP 173/99 H 01/20/25 06:25 Pulse Ox 95 01/20/25 06:25 O2 Del Method High Flow Nasal C annula 01/20/25 06:25 O2 Flow Rate 50 01/20/25 03:05 FiO2 50 01/20/25 03:05 BMI result Body Mass Index 30.5 Const: General: cooperative, comfortable, no acute distress, well developed and awake Orientation/consciousness: patient oriented x3 HEENT: Head: Yes normal to inspection, Yes normocephalic and Yes atraumatic Eyes: General: appearance normal, both eyes and all related structures Neck: Neck: Yes normal visual inspection, Yes full ROM, Yes trachea midline and Yes supple Chest: Chest palpation & inspection: normal inspection of the chest Resp: Other: some appreciable rhonchi; no appreciable overt rales, wheezing Effort & Inspection: normal respiratory effort Cardio: Rate: regular rate Rhythm: regular rhythm GI: Inspection: Yes normal to inspection, No Abdominal wall edema and No distended Palpation (GI): Soft to palpation, not firm, nontender, no guarding and not rigid Skin: General skin exam: no rashes or lesions noted Neuro: General: patient oriented x3, tone normal, moves all extremities and no focal motor deficits Extrem: General: Yes normal to inspection, Yes full ROM, Yes capillary refill normal and Yes no clubbing, cyanosis or edema Psych: Appearance: grossly normal Results Labs 01/20/25 01:56 01/20/25 01:56 Labs: Laboratory Results - last 24 hr 01/20/25 01/20/25 01/20/25 01:56 02:01 03:22 MCV 86.4 MCH 29.9 MCHC 34.6 RDW 13.8 Plt Count 157 L MPV 11.1 Immature Gran % (Auto) 0.3 Neut % (Auto) 72.5 Lymph % (Auto) 12.6 L [place] % (Auto) 14.4 H Eos % (Auto) 0.0 Baso % (Auto) 0.2 Lymph # (Auto) 1.4 [place] # (Auto) 1.6 H Eos # (Auto) 0.0 Baso # (Auto) 0.0 Abs Immat Gran (auto) 0.03 Absolute Neuts (auto) 7.9 Absolute Nucleated RBC 0.000 Nucleated RBC % (auto) 0.0 Smear Tech's Comments VERIFIED PT 13.0 H INR 1.1 VBG pH 7.35 VBG pCO2 52 VBG pO2 40 VBG HCO3 29 H VBG O2 Saturation 60.0 VBG Base Excess 2.7 Anion Gap 16 Estim Creat Clear Calc 66.9 Estimated GFR > 60 Random Glucose 187 H Lactic Acid 1.7 Calcium 9.0 D Total Bilirubin 0.9 AST 52 H ALT 56 H Alkaline Phosphatase 77 Troponin I High Sens 11.6 NT-Pro-B Natriuret Pep 59.2 Total Protein 8.6 H Albumin 4.6 Influenza Type A (PCR) NEGATIVE Influenza Type B (PCR) NEGATIVE RSV RNA Qual (PCR) NEGATIVE SARS-CoV-2 RNA (RT-PCR) POSITIVE A Assessment and Plan (1) Acute hypoxic respiratory failure: Status: Acute (2) COVID-19: Status: Acute Plan Patient is a 74 Y M w/ prior lung cancer s/p resection and recent diagnosis COVID started on paxlovid, presenting to ED on 01/20 w/ dyspnea, found to be in acute hypoxic respiratory failure, initially on HFNC, then placed on non- invasive N: no acute issues CV: no acute issues, to closely monitor R: COVID pneumonia, c/b acute hypoxic respiratory failure, non-invasive, to try HFNC, closely monitor GI: NPO while on non-invasive, otherwise advance as tolerated; to monitor transaminases in setting of remdesivir : no acute issues H: no acute issues; chemical DVT prophylaxis ID: COVID pneumonia, on remdesivir, dexamethasone; empiric levofloxacin for possible bacterial pneumonia E: to monitor hypo-/hyper-glycemia P: no acute issues S: daily updates given to
--- NOTE | 2025-01-20 08:47 | PHA.MEDREC ---
Pharmacy Consult ? Medication Reconciliation Pharmacy has completed the medication reconciliation. Spoke with pt to confirm meds. Pt states he takes 70 units of insulin glargine daily (claims state 75 units 01/07/25). Pt takes a sliding sclare for Fiasp, and Ozempic on Sundays.
[2025-01-20 10:17] LABS: Anion Gap 14 (12-20); Blood Urea Nitrogen 22 mg/dL (9-16); Carbon Dioxide 24 mmol/L (22-29); Chloride 106 mmol/L (96-108); Creatinine Clr Calc Pharmacy 75.6; Estimated Glomerular Filt Rate > 60; Potassium 3.6 mmol/L (3.3-5.1); Sodium 140 mmol/L (135-145)
[2025-01-20 10:20] LABS: Partial Thromboplastin Time 30.3 SEC (26.7-34.1)
[2025-01-20] MEDS: Remdesivir 200 MG in 0.9 % Sodium Chloride 210 ML 105 MG IV (10:23)
[2025-01-20 12:47] LABS: Glucose, Whole Blood 277 mg/dL (60-115)
[2025-01-20] MEDS: Throat Lozenge, Medicated LOZENGE 1 LOZENGE MUCOUS MEM (12:59)
[2025-01-20 16:20] LABS: Glucose, Whole Blood 278 mg/dL (60-115)
--- NOTE | 2025-01-20 17:55 | PC.NURSE ---
Pt. brought to ICU at approx 0945, initally on bipap, transitioned to HFNC 35L 35% at approx 1030. Pt. with some SOB and MORRIS, but tolerating HFNC. productive cough with moderate amt. thick duran sputum- pt. encouraged to expectorate. Pt. A&Ox4, makes needs known. SR/ST on tele, HR 90s-100s. male purewick in place, voiding cyu. Family at bedside, updated by and this RN. Plan of care ongoing.
[2025-01-20 21:03] LABS: Glucose, Whole Blood 278 mg/dL (60-115)
[2025-01-21] VITALS (23 sets, daily range): BP systolic 106–149; BP diastolic 47–93; PULSE 65–94; RESP 13–22; TEMP 35.8–37.6; O2SAT 88–99; BMI 31.5
[2025-01-21 05:15] LABS: MANUAL DIFF FLAG NO
[2025-01-21 05:16] LABS: VBG HCO3 28 mmol/L (22-26); VBG O2 % Saturation 76.0 %
[2025-01-21 05:21] LABS: Hematocrit 48.6 % (42.0-52.0); Hemoglobin 16.1 g/dl (14.0-18.0); Imm Gran Abs Auto 0.15 X10*3/uL (0.00-0.03); Imm Gran Pct Auto 0.8 % (0.0-0.4); Lymphocytes Absolute Auto 0.9 X10*3/uL (1.2-4.9); Mean Corpuscular HGB Conc 33.1 g/dl (31.0-36.0); Mean Corpuscular Hemoglobin 29.5 pg (27.0-33.0); Mean Corpuscular Volume 89.2 fL (80.0-98.0); NRBC Abs Auto 0.000 X10*3/uL (0.0-0.012); NRBC Pct Auto 0.0 /100WBC (0.0-0.2); Platelet Count 137 X10*3/uL (160-400); Red Blood Count 5.45 X10*6/uL (4.60-5.80); White Blood Count 18.0 X10*3/uL (4.8-10.8)
[2025-01-21 05:31] LABS: Venous Blood Gas Refer to POC result
[2025-01-21 05:37] LABS: Alanine Aminotransferase 41 U/L (0-40); Albumin Level 3.9 g/dL (3.5-5.0); Alkaline Phosphatase 61 U/L (39-117); Anion Gap 13 (12-20); Aspartate Amino Transferase 33 U/L (5-37); Blood Urea Nitrogen 21 mg/dL (9-16); Calcium 8.9 mg/dL (8.4-10.2); Carbon Dioxide 26 mmol/L (22-29); Chloride 106 mmol/L (96-108); Creatinine Clr Calc Pharmacy 84.3; Estimated Glomerular Filt Rate > 60; Magnesium 2.2 mg/dL (1.6-2.6); Potassium 4.2 mmol/L (3.3-5.1); Sodium 141 mmol/L (135-145); Total Protein 7.3 g/dL (6.5-8.0)
[2025-01-21 06:22] LABS: Partial Thromboplastin Time 35.6 SEC (26.7-34.1)
--- NOTE | 2025-01-21 07:21 | PC.NURSE ---
Critical Care Nursing Note ? Assumed care of the patient at 1900. Patient alert and oriented, vague with flat affect. SR on telemetry. The patient remains on high flow oxygen. Patient encouraged and educated on the need to cough and deep breath.
[2025-01-21 08:08] LABS: Glucose, Whole Blood 268 mg/dL (60-115)
[2025-01-21] MEDS: 0.9 % Sodium Chloride Flush 3 ML SYRINGE IVFLUSH ×3 (09:00→21:20)
--- NOTE | 2025-01-21 09:25 | PM.CCPN ---
Subjective Subjective Date of Service: 01/21/25 Interval History: no significant overnight events; persistent HFNC use Critical Care Time (minutes): 30 Physical Exam Vital Signs: Vital Signs: Last Vital Signs Temp 97.8 F 01/21/25 08:00 Pulse 65 01/21/25 09:00 Resp 18 01/21/25 09:00 BP 121/50 L 01/21/25 09:00 Pulse Ox 99 01/21/25 09:00 O2 Del Method High Flow Nasal C annula 01/21/25 09:00 O2 Flow Rate 35 01/21/25 09:00 FiO2 35 01/21/25 09:00 BMI result Body Mass Index 31.5 Const: General: cooperative, healthy appearing, comfortable, no acute distress, well developed, alert, awake and Physically active Orientation/consciousness: patient oriented x3 HEENT: Head: Yes normal to inspection, Yes normocephalic and Yes atraumatic Eyes: General: appearance normal, both eyes and all related structures Neck: Neck: Yes normal visual inspection, Yes full ROM, Yes no meningeal signs, Yes trachea midline and Yes supple Chest: Chest palpation & inspection: normal inspection of the chest Resp: Other: some appreciable rhonchi; no appreciabel overt rales, wheezing Effort & Inspection: normal respiratory effort Cardio: Rate: regular rate Rhythm: regular rhythm GI: Inspection: Yes normal to inspection, No Abdominal wall edema and No distended Palpation (GI): Soft to palpation, not firm, nontender, no guarding and not rigid Skin: General skin exam: no rashes or lesions noted Neuro: General: patient oriented x3, tone normal, moves all extremities, no meningeal signs and no focal motor deficits Extrem: General: Yes normal to inspection, Yes full ROM and Yes capillary refill normal Psych: Appearance: grossly normal Objective Data Labs 01/21/25 05:09 01/21/25 05:09 Labs: Laboratory Results - last 24 hr 01/20/25 01/20/25 01/20/25 09:36 12:42 16:16 WBC RBC Hgb Hct MCV MCH MCHC RDW Plt Count MPV Immature Gran % (Auto) Neut % (Auto) Lymph % (Auto) [place] % (Auto) Eos % (Auto) Baso % (Auto) Lymph # (Auto) [place] # (Auto) Eos # (Auto) Baso # (Auto) Abs Immat Gran (auto) Absolute Neuts (auto) Absolute Nucleated RBC Nucleated RBC % (auto) APTT 30.3 VBG pH VBG pCO2 VBG pO2 VBG HCO3 VBG O2 Saturation VBG Base Excess Sodium 140 Potassium 3.6 Chloride 106 Carbon Dioxide 24 Anion Gap 14 BUN 22 H Creatinine 1.06 Estim Creat Clear Calc 75.6 Estimated GFR > 60 POC Glucose 277 H 278 H Random Glucose Calcium Phosphorus Magnesium Total Bilirubin Direct Bilirubin AST ALT Alkaline Phosphatase Total Protein Albumin 01/20/25 01/21/25 01/21/25 20:59 05:09 05:12 WBC 18.0 H RBC 5.45 Hgb 16.1 Hct 48.6 MCV 89.2 MCH 29.5 MCHC 33.1 RDW 14.1 Plt Count 137 L MPV 11.8 Immature Gran % (Auto) 0.8 H Neut % (Auto) 86.9 H Lymph % (Auto) 5.1 L [place] % (Auto) 6.0 Eos % (Auto) 0.4 Baso % (Auto) 0.8 Lymph # (Auto) 0.9 L [place] # (Auto) 1.1 Eos # (Auto) 0.1 Baso # (Auto) 0.2 Abs Immat Gran (auto) 0.15 H Absolute Neuts (auto) 15.6 H Absolute Nucleated RBC 0.000 Nucleated RBC % (auto) 0.0 APTT 35.6 H VBG pH 7.48 H VBG pCO2 37 VBG pO2 44 VBG HCO3 28 H VBG O2 Saturation 76.0 VBG Base Excess 4.8 Sodium 141 Potassium 4.2 Chloride 106 Carbon Dioxide 26 Anion Gap 13 BUN 21 H Creatinine 0.95 Estim Creat Clear Calc 84.3 Estimated GFR > 60 POC Glucose 278 H Random Glucose 228 H Calcium 8.9 Phosphorus 2.4 L Magnesium 2.2 Total Bilirubin 0.7 Direct Bilirubin 0.3 AST 33 ALT 41 H Alkaline Phosphatase 61 Total Protein 7.3 Albumin 3.9 01/21/25 07:39 WBC RBC Hgb Hct MCV MCH MCHC RDW Plt Count MPV Immature Gran % (Auto) Neut % (Auto) Lymph % (Auto) [place] % (Auto) Eos % (Auto) Baso % (Auto) Lymph # (Auto) [place] # (Auto) Eos # (Auto) Baso # (Auto) Abs Immat Gran (auto) Absolute Neuts (auto) Absolute Nucleated RBC Nucleated RBC % (auto) APTT VBG pH VBG pCO2 VBG pO2 VBG HCO3 VBG O2 Saturation VBG Base Excess Sodium Potassium Chloride Carbon Dioxide Anion Gap BUN Creatinine Estim Creat Clear Calc Estimated GFR POC Glucose 268 H Random Glucose Calcium Phosphorus Magnesium Total Bilirubin Direct Bilirubin AST ALT Alkaline Phosphatase Total Protein Albumin Microbiology Microbiology Results: Microbiology 01/20/25 01:56 Blood - Venous Blood Culture - Preliminary No growth after 24 hours. 01/20/25 01:56 Blood - Venous Blood Culture - Preliminary No growth after 24 hours. Progress Note: A&P Assessment and plan (1) Acute hypoxic respiratory failure: Status: Acute (2) Pneumonia due to COVID-19 virus: Status: Acute Plan Patient is a 74 Y M w/ prior lung cancer s/p resection and recent diagnosis COVID started on paxlovid, presenting to ED on 01/20 w/ dyspnea, found to be in acute hypoxic respiratory failure, placed on HFNC N: no acute issues CV: no acute issues, to closely monitor R: COVID pneumonia, c/b acute hypoxic respiratory failure, HFNC, wean as tolerated GI: diabetic diet; to monitor transaminases in setting of remdesivir : no acute issues H: no acute issues; chemical DVT prophylaxis ID: COVID pneumonia, on remdesivir, dexamethasone; empiric levofloxacin for possible bacterial pneumonia E: diabetes mellitus, to monitor hypo-/hyper-glycemia; of note, thyroid nodule appreciated on CT C, to follow-up thyroid ultrasound P: no acute issues S: daily updates given to Quality Stroke Does the patient have a stroke diagnosis?: No VTE Prior VTE?: No VTE Risk Level:: Medical - moderate - high VTE Device Contraindication: N/A - Device Ordered VTE Drug Contraindication: N/A - Med Ordered
--- NOTE | 2025-01-21 10:13 | MHC.CM.PN ---
IMM DELIVERED. CM MET WITH PT AT BEDSIDE IN ICU. PT CURRENTLY ON HF02, ALERT AND ORIENTED, ABLE TO PARTICIPATE IN ASSESSMENT. PT LIVES WITH SPOUSE AND IS FUNCTIONALLY INDEPENDENT/+DRIVES. NO SERVICES/DME. PT DOES NOT WANT TO COMPLETE A HCP AT THIS TIME DUE TO FATIGUE BUT STATES HIS HAS THE FORM TO COMPLETE AT HOME. PCP DR. TIFFANY COLBERT AT [facility]. DP: HOME, NO SERVICES IS THE GOAL. PT'S SPOUSE WILL TRANSPORT HOME. CM WILL CONTINUE TO FOLLOW FOR ANY CHANGE TO DC PLAN/NEEDS.
[2025-01-21] MEDS: Potassium Phosphate/NS 15 MMOL/250 ML PLAST..BAG 62.5 MMOL IV (11:28)
[2025-01-21] MEDS: Remdesivir 100 MG in 0.9 % Sodium Chloride 230 ML 115 MG IV (11:29)
[2025-01-21 11:57] LABS: Glucose, Whole Blood 240 mg/dL (60-115)
--- NOTE | 2025-01-21 15:36 | PM.EVENT ---
Event Note Date of Service: 01/22/25 Event Note: Patient downgraded from ICU today Patient admitted to ICU and downgraded-acute hypoxemic respiratory failure onoxygen /COVID Physical exam and assessment and plan per icu note Time Spent With Patient Time: Total time managing care of this patient today ____ minutes.
[2025-01-21 16:49] LABS: Glucose, Whole Blood 258 mg/dL (60-115)
--- NOTE | 2025-01-21 17:51 | PC.NURSE ---
Patient stating trying to void and voiding small amounts throughout shift. Bladder scan checked and >800mls in bladder. Patient sitting at edge of bed with RN and standing with RN. stating bladder discomfort. Able to void 400 spontaneously. However, post void residual showed 660mls on bladder scan. So straight cath performed. 620 removed in straight cath. (see I+Os)
[2025-01-21 20:38] LABS: Glucose, Whole Blood 291 mg/dL (60-115)
[2025-01-22] VITALS: BP 140/75; PULSE 72; RESP 20; TEMP 36.2; O2SAT 94
[2025-01-22] MEDS: Throat Lozenge, Medicated LOZENGE 1 LOZENGE MUCOUS MEM ×2 (00:41→09:04)
[2025-01-22] MEDS: guaiFEN/Codeine SF 200/20/10ML 10 ML LIQUID 5 ML PO ×2 (00:41→09:04)
[2025-01-22 04:00] VITALS: BP 135/74; PULSE 68; RESP 16; TEMP 36.1; O2SAT 97
[2025-01-22 06:00] VITALS: BMI 31.3
[2025-01-22 06:57] LABS: MANUAL DIFF FLAG NO
[2025-01-22 07:12] LABS: Hematocrit 46.9 % (42.0-52.0); Hemoglobin 15.8 g/dl (14.0-18.0); Imm Gran Abs Auto 0.25 X10*3/uL (0.00-0.03); Imm Gran Pct Auto 1.6 % (0.0-0.4); Lymphocytes Absolute Auto 1.1 X10*3/uL (1.2-4.9); Mean Corpuscular HGB Conc 33.7 g/dl (31.0-36.0); Mean Corpuscular Hemoglobin 29.6 pg (27.0-33.0); Mean Corpuscular Volume 88.0 fL (80.0-98.0); NRBC Abs Auto 0.000 X10*3/uL (0.0-0.012); NRBC Pct Auto 0.0 /100WBC (0.0-0.2); Platelet Count 151 X10*3/uL (160-400); Red Blood Count 5.33 X10*6/uL (4.60-5.80); White Blood Count 15.9 X10*3/uL (4.8-10.8)
[2025-01-22 07:16] LABS: Glucose, Whole Blood 248 mg/dL (60-115)
[2025-01-22 07:18] LABS: Anion Gap 14 (12-20); Blood Urea Nitrogen 26 mg/dL (9-16); Calcium 9.0 mg/dL (8.4-10.2); Carbon Dioxide 28 mmol/L (22-29); Chloride 104 mmol/L (96-108); Creatinine Clr Calc Pharmacy 92.9; Estimated Glomerular Filt Rate > 60; Magnesium 2.4 mg/dL (1.6-2.6); Potassium 4.6 mmol/L (3.3-5.1); Sodium 141 mmol/L (135-145)
[2025-01-22 07:45] VITALS: BP 145/69; PULSE 72; RESP 20; TEMP 36.1; O2SAT 96
[2025-01-22] MEDS: 0.9 % Sodium Chloride Flush 3 ML SYRINGE IVFLUSH ×3 (09:06→21:22)
[2025-01-22] MEDS: Insulin Glargine,Hum.rec.anlog 100 UNIT/ML 10 ML VIAL 70 UNIT SUBCUT (10:54)
[2025-01-22 11:05] LABS: Glucose, Whole Blood 318 mg/dL (60-115)
[2025-01-22 11:24] VITALS: BP 154/69; PULSE 85; RESP 20; TEMP 36.1; O2SAT 93
[2025-01-22] MEDS: Remdesivir 100 MG in 0.9 % Sodium Chloride 230 ML 115 MG IV (11:27)
--- NOTE | 2025-01-22 15:24 | P.PNIM_ITS ---
Subjective Subjective Date of Service: 01/22/25 Interval History: acute hypoxic respiratory failure/covid Review of Systems sob somewhat improving no chest pain mild urinary retention Review of Systems: Yes all other systems are reviewed and are negative Physical Exam 2 Exam: Exam: Appearance: awake ,alert ,sob improving ,on oxygen, generlaised weak cvs: rrr, [id number] res: air enrty fair ,has few rhonchii abd: no rebound or guarding ,nt, bs present. ext pulses present , no cyanosis. neuro: axo3 , nonfocal. Vital Signs: Vital Signs: Last Vital Signs Temp 97.0 F 01/22/25 11:24 Pulse 85 01/22/25 11:24 Resp 20 01/22/25 11:24 BP 154/69 H 01/22/25 11:24 Pulse Ox 93 01/22/25 11:24 O2 Del Method Room Air 01/22/25 11:24 O2 Flow Rate 2 01/22/25 07:45 FiO2 35 01/21/25 11:00 BMI result Body Mass Index 31.3 Objective Data Active Medications Benzocaine (Throat Lozenge, Medicated Lozenge) 1 lozenge MUCOUS MEM Q2H PRN PRN Reason: Sore Throat Last Admin: 01/22/25 09:04 Dose: 1 lozenge Documented By: ENOC Dexamethasone Sodium Phosphate (Dexamethasone Sod Phosphate 4 Mg/Ml Vial) 6 mg IVPUSH DAILY [facility] Last Admin: 01/22/25 09:05 Dose: 6 mg Documented By: ENOC Dextrose (Dextrose 50 % 25 Gm/50 Ml Syringe) 25 gm IVPUSH Q15M PRN; Protocol PRN Reason: per Hypoglycemia Standing Ord. Enoxaparin Sodium (Enoxaparin Sodium 40 Mg/0.4 Ml Syringe) 40 mg SUBCUT Q24H [facility] Last Admin: 01/22/25 09:07 Dose: 40 mg Documented By: ENOC Glucose (Glucose Gel 15 Gm Gel..Gram.) 15 gm PO Q15M PRN; Protocol PRN Reason: per Hypoglycemia Standing Ord. Guaifenesin/Codeine Phosphate (Guaifen/Codeine Sf 200/20/10ml 10 Ml Liquid) 5 ml PO Q6H PRN PRN Reason: Cough Last Admin: 01/22/25 09:04 Dose: 5 ml Documented By: ENOC Remdesivir 100 mg/ Sodium (Chloride) 230 mls @ 115 mls/hr IV Q24H [facility] Stop: 01/24/25 10:59 Last Infusion: 01/22/25 13:59 Dose: Infused Documented By: ENOC Insulin Glargine (Insulin Glargine,Hum.Rec.Anlog 100 Unit/Ml 10 Ml Vial) 70 unit SUBCUT DAILY [facility] Last Admin: 01/22/25 10:54 Dose: 70 unit Documented By: BARBARA Insulin Human Lispro (Insulin Lispro 100 Unit/Ml 3 Ml Vial) 0 unit SUBCUT QIDACHS [facility]; Protocol Last Admin: 01/22/25 12:24 Dose: 8 unit Documented By: ENOC Levofloxacin (Levofloxacin 750 Mg Tablet) 750 mg PO Q24H [facility] Last Admin: 01/22/25 09:05 Dose: 750 mg Documented By: ENOC Sodium Chloride (0.9 % Sodium Chloride Flush 3 Ml Syringe) 3 ml IVFLUSH QSHIFT [facility] Last Admin: 01/22/25 09:06 Dose: 3 ml Documented By: ENOC Labs 01/22/25 06:49 01/22/25 06:49 Labs: Laboratory Results - last 24 hr 01/21/25 01/21/25 01/22/25 16:32 20:33 06:49 MCV 88.0 MCH 29.6 MCHC 33.7 RDW 13.8 Plt Count 151 L MPV 11.6 Immature Gran % (Auto) 1.6 H Neut % (Auto) 86.9 H Lymph % (Auto) 6.7 L [place] % (Auto) 4.7 Eos % (Auto) 0.0 Baso % (Auto) 0.1 Lymph # (Auto) 1.1 L [place] # (Auto) 0.8 Eos # (Auto) 0.0 Baso # (Auto) 0.0 Abs Immat Gran (auto) 0.25 H Absolute Neuts (auto) 13.8 H Absolute Nucleated RBC 0.000 Nucleated RBC % (auto) 0.0 Anion Gap 14 Estim Creat Clear Calc 92.9 Estimated GFR > 60 POC Glucose 258 H 291 H Random Glucose 251 H Calcium 9.0 Phosphorus 2.6 L Magnesium 2.4 01/22/25 01/22/25 07:12 11:01 MCV MCH MCHC RDW Plt Count MPV Immature Gran % (Auto) Neut % (Auto) Lymph % (Auto) [place] % (Auto) Eos % (Auto) Baso % (Auto) Lymph # (Auto) [place] # (Auto) Eos # (Auto) Baso # (Auto) Abs Immat Gran (auto) Absolute Neuts (auto) Absolute Nucleated RBC Nucleated RBC % (auto) Anion Gap Estim Creat Clear Calc Estimated GFR POC Glucose 248 H 318 H Random Glucose Calcium Phosphorus Magnesium Microbiology Microbiology Results: Microbiology 01/20/25 01:56 Blood Culture - Preliminary Blood - Venous No growth after 48 hours. 01/20/25 01:56 Blood Culture - Preliminary Blood - Venous No growth after 48 hours. Assessment and Plan (1) COVID-19: Status: Acute (2) Respiratory failure: Status: Acute Plan 74 Y M w/ prior lung cancer s/p resection and recent diagnosis COVID started on paxlovid, presenting to ED on 01/20 w/ dyspnea, found to be in acute hypoxic respiratory failure, initially on HFNC -improving: transferred to medical floor. acute hypoxemic respiratory failure sec to COVID pneumonia, c/b acute hypoxic respiratory failure, non-invasive, to try HFNC. blood culture neg@48hrs on remdesivir, dexamethasone; empiric levofloxacin for possible bacterial pneumonia,taper oxygen. Id eval. dm with hyperglycemia: will adjust fs with coverage ,continue home lantus. dvt prophylax: s/c lovenox Ongoing need for stay:acute hypoxemic respiratory failure sec to COVID pneumonia, c/b acute hypoxic respiratory failure-oxygen demand, on remdesivir/antibiotics, ID evaluation pending Quality Stroke Does the patient have a stroke diagnosis?: No VTE Prior VTE?: No VTE Risk Level:: Medical - moderate - high VTE Device Contraindication: N/A - Device Ordered VTE Drug Contraindication: N/A - Med Ordered
[2025-01-22 15:51] VITALS: BP 132/73; PULSE 78; RESP 18; TEMP 36.1; O2SAT 96
[2025-01-22 16:54] LABS: Glucose, Whole Blood 270 mg/dL (60-115)
[2025-01-22 20:14] LABS: Glucose, Whole Blood 302 mg/dL (60-115)
[2025-01-22 22:26] LABS: CDiff Gene PCR NEGATIVE (Negative)
[2025-01-22 23:52] VITALS: BP 132/75; PULSE 72; RESP 18; TEMP 36.4; O2SAT 95
[2025-01-23 04:00] VITALS: BP 166/80; PULSE 72; RESP 18; TEMP 36.4; O2SAT 92
[2025-01-23 06:00] VITALS: BMI 31.2
[2025-01-23 07:39] VITALS: BP 156/72; PULSE 78; RESP 18; TEMP 36.3; O2SAT 96
[2025-01-23 07:42] LABS: Glucose, Whole Blood 257 mg/dL (60-115)
[2025-01-23] MEDS: Insulin Glargine,Hum.rec.anlog 100 UNIT/ML 10 ML VIAL 70 UNIT SUBCUT (07:59)
[2025-01-23] MEDS: 0.9 % Sodium Chloride Flush 3 ML SYRINGE IVFLUSH (07:59)
[2025-01-23 08:05] LABS: MANUAL DIFF FLAG NO
[2025-01-23 08:16] LABS: Hematocrit 46.9 % (42.0-52.0); Hemoglobin 15.4 g/dl (14.0-18.0); Imm Gran Abs Auto 0.06 X10*3/uL (0.00-0.03); Imm Gran Pct Auto 0.5 % (0.0-0.4); Lymphocytes Absolute Auto 0.9 X10*3/uL (1.2-4.9); Mean Corpuscular HGB Conc 32.8 g/dl (31.0-36.0); Mean Corpuscular Hemoglobin 29.3 pg (27.0-33.0); Mean Corpuscular Volume 89.2 fL (80.0-98.0); NRBC Abs Auto 0.000 X10*3/uL (0.0-0.012); NRBC Pct Auto 0.0 /100WBC (0.0-0.2); Platelet Count 141 X10*3/uL (160-400); Red Blood Count 5.26 X10*6/uL (4.60-5.80); White Blood Count 12.4 X10*3/uL (4.8-10.8)
[2025-01-23 08:23] LABS: Anion Gap 11 (12-20); Blood Urea Nitrogen 31 mg/dL (9-16); Calcium 8.9 mg/dL (8.4-10.2); Carbon Dioxide 32 mmol/L (22-29); Chloride 102 mmol/L (96-108); Creatinine Clr Calc Pharmacy 77.4; Estimated Glomerular Filt Rate > 60; Magnesium 2.2 mg/dL (1.6-2.6); Potassium 4.5 mmol/L (3.3-5.1); Sodium 140 mmol/L (135-145)
[2025-01-23] MEDS: Remdesivir 100 MG in 0.9 % Sodium Chloride 230 ML 115 MG IV (10:45)
[2025-01-23 11:09] LABS: Thyroid Stimulating Hormone 0.14 uIU/mL (0.32-4.0)
[2025-01-23 11:11] VITALS: BP 149/72; PULSE 72; RESP 18; TEMP 36.4; O2SAT 93
[2025-01-23 11:32] LABS: Glucose, Whole Blood 330 mg/dL (60-115)
[2025-01-23 11:57] VITALS: PULSE 90; PULSE 97; O2SAT 90; O2SAT 92
--- NOTE | 2025-01-23 12:56 | P.DS_ITS ---
DS: Providers Provider Date of Service: 01/23/25 Date of admission: 01/20/25 08:07 Date of discharge: 01/23/25 Primary care physician: Stephen Peguero III, MD Consults: 01/22/25 15:42 Consult to Infectious Diseases Routine Consulting Provider: [facility] Reason for consultation: [facility] sec covid pneumonia Has provider been notified: No Attending physician on discharge: Octavio Garcia Discharging clinician: Octavio Garcia DS: Diagnosis Discharge Diagnosis (1) COVID-19: Status: Acute (2) Respiratory failure: Status: Acute DS: Summary Hospital Course Hospital Course: HPI:74 Y M w/ prior lung cancer s/p resection and recent diagnosis COVID started on paxlovid, presenting to ED on 01/20 w/ dyspnea, found to be in acute hypoxic respiratory failure, initially on HFNC, then placed on non-invasive. Hospital course: acute hypoxemic respiratory failure sec to COVID pneumonia, c/b acute hypoxic respiratory failure, non-invasive, to try HFNC: chest ct: has possible atelactasis /infiltrate,thyroid nodule incidental finding- Patient is started on high-flow oxygen, remdesivir, dexamethasone, levofloxacin empirically. Patient improved significantly, will be going home. Discussed with infectious disease currently patient improved-likely had COVID pneumonia-no further need of antibiotics/remdesivir or oxygen. Evaluated for home oxygen patient did not qualify. Thyroid nodule incidental finding: Thyroid ultrasound shows-There is an ill- defined 1.3 x 0.5 x 0.5 cm hypoechoic area at the upper pole of the right thyroid lobe which does not clearly represent a nodule. There is a dominant nodule on the left with imaging characteristics as described below. low tsh . follow up with Dr Clifton's office endocrinology for further management including biopsy outpatient. Diabetes with mild hyperglycemia: Secondary to steroid use. Steroids stopped. Monitor fingersticks at home, continue home insulin regimen. plan: COVID pneumonia-patient improved. Further workup for thyroid nodule-TSH, free T4 and t3 outpatient, further need of thyroid biopsy will be decided also outpatient and management as well. Above management discussed with the patient and his in detail length they both understand and in agreement with the above plan, time spent 45 minute, all question answered. Time Attestation Total time managing care of this patient today: 45 mintues. Discharge Coordination Time (in mins): 45min Quality: Safe Use of Opioids Does Pt have an Active Cancer Diagnosis on the Problem List?: No Quality: Stroke Does the patient have a stroke diagnosis?: No Physical Exam Exam: Exam: Appearance: Alert.? Oriented X3.? cvs: rrr, [id number] , no murmur res: Air entry fair no rales or wheezing abd: no rebound or guarding ,nt, bs present. ext pulses present , no cyanosis . neuro: axo3 , nonfocal. Vital Signs: Vital Signs: Last Vital Signs Temp 97.6 F 01/23/25 11:11 Pulse 72 01/23/25 11:11 Resp 18 01/23/25 11:11 BP 149/72 H 01/23/25 11:11 Pulse Ox 93 01/23/25 11:11 O2 Del Method Room Air 01/23/25 11:11 O2 Flow Rate 2 01/22/25 07:45 FiO2 35 01/21/25 11:00 BMI result Body Mass Index 31.2 DS: Data Data Completed and Pending Labs on day of discharge: Laboratory Results - last 24 hr 01/22/25 01/22/25 01/22/25 16:44 20:03 21:30 WBC RBC Hgb Hct MCV MCH MCHC RDW Plt Count MPV Immature Gran % (Auto) Neut % (Auto) Lymph % (Auto) [place] % (Auto) Eos % (Auto) Baso % (Auto) Lymph # (Auto) [place] # (Auto) Eos # (Auto) Baso # (Auto) Abs Immat Gran (auto) Absolute Neuts (auto) Absolute Nucleated RBC Nucleated RBC % (auto) Sodium Potassium Chloride Carbon Dioxide Anion Gap BUN Creatinine Estim Creat Clear Calc Estimated GFR POC Glucose 270 H 302 H Random Glucose Calcium Phosphorus Magnesium TSH C. difficile Tox B Gene NEGATIVE 01/23/25 01/23/25 01/23/25 07:38 07:39 11:29 WBC 12.4 H RBC 5.26 Hgb 15.4 Hct 46.9 MCV 89.2 MCH 29.3 MCHC 32.8 RDW 13.7 Plt Count 141 L MPV 12.0 Immature Gran % (Auto) 0.5 H Neut % (Auto) 87.2 H Lymph % (Auto) 7.2 L [place] % (Auto) 4.9 Eos % (Auto) 0.0 Baso % (Auto) 0.2 Lymph # (Auto) 0.9 L [place] # (Auto) 0.6 Eos # (Auto) 0.0 Baso # (Auto) 0.0 Abs Immat Gran (auto) 0.06 H Absolute Neuts (auto) 10.8 H Absolute Nucleated RBC 0.000 Nucleated RBC % (auto) 0.0 Sodium 140 Potassium 4.5 Chloride 102 Carbon Dioxide 32 H Anion Gap 11 L BUN 31 H Creatinine 1.03 Estim Creat Clear Calc 77.4 Estimated GFR > 60 POC Glucose 257 H 330 H Random Glucose 259 H Calcium 8.9 Phosphorus 3.3 Magnesium 2.2 TSH 0.14 L C. difficile Tox B Gene Preliminary micro results at discharge 01/20/25 01:56 Blood Culture - Preliminary Blood - Venous No growth after 48 hours. 01/20/25 01:56 Blood Culture - Preliminary Blood - Venous No growth after 48 hours. Imaging Chest x-ray: Radiologist's impression: ITS Impressions Thyroid Ultrasound 01/20/25 17:30 IMPRESSION: Dominant nodule in the left thyroid lobe as described. According to ACR TI-RADS guidelines, ultrasound-guided fine-needle aspiration is recommended. ACR TI-RADS Guidelines TR1 (0 points): Benign. No follow-up or biopsy required TR2 (2 points): Not Suspicious. No biopsy or follow up indicated TR3 (3 points): Mildly Suspicious. FNA if >= 2.5 cm, Follow if >= 1.5 cm TR4 (4-6 points): Moderately Suspicious. FNA if >= 1.5 cm, Follow if >= 1.0 cm TR5 (>=7 points): Highly Suspicious. FNA if >= 1.0 cm, Follow if >= 0.5 cm Electronically signed by: Juma Rao MD 01/23/2025 07:05 AM EDT Discharge Plan Discharge Anticipated Discharge Date/Time: 01/23/25 12:23 Patient Disposition: Home, Self-Care Discharge Diagnosis: Acute hypoxemic respiratory failure secondary to COVID. Referrals: Stephen Peguero III, MD [Primary Care Provider, Medical] - 1 Week Brandi Clifton MD [Physician, Endocrinology] - 1 Week Discharge Medications: Continued insulin glargine [Basaglar KwikPen U-100 Insulin] 100 unit/mL (3 mL) insulin pen 70 unit subcut DAILY Fiasp FlexTouch U-100 Insulin 100 unit/mL (3 mL) insulin pen See Protocol SUBCUT TIDAC Protocol: Insulin Correction Scale Less than or equal to 110 ---- Give (units): 0 111 to 150 Give (units): 0 151 to 200 Give (units): 2 201 to 250 Give (units): 4 251 to 300 Give (units): 6 301 to 350 Give (units): 8 Greater than 350 Give (units): 10 Call MD if Blood Glucose > : 350 Ozempic 1 mg/dose (4 mg/3 mL) pen injector 1 mg subcut GEORGES@0900 acetaminophen 325 mg Tablet 650 mg PO TID PRN (Reason: Fever Or Pain) Discharge Orders: Discharge Order (Routine); Ordered 01/23/25 Ordered By: Octavio Garcia Diet: Advance to usual diet Activity on Discharge: As tolerated Stand Alone Forms: Patient Portal Discharge page Print Language: Maltese Other Ambulatory Orders: TSH reflex Free T4 (Routine) Timeframe: 1 Week Facility: [facility] - Location: Laboratory Ordered By: cOtavio Garcia Care Plan Goals: acute hypoxemic respiratory failure sec to COVID pneumonia, c/b acute hypoxic respiratory failure, non-invasive, to try HFNC: chest ct: has possible atelactasis /infiltrate,thyroid nodule incidental finding- Patient is started on high-flow oxygen, remdesivir, dexamethasone, levofloxacin empirically. Patient improved significantly, will be going home. Discussed with infectious disease currently patient improved-likely had COVID pneumonia-no further need of antibiotics/remdesivir or oxygen. Evaluated for home oxygen patient did not qualify. Thyroid nodule incidental finding: Thyroid ultrasound shows-There is an ill- defined 1.3 x 0.5 x 0.5 cm hypoechoic area at the upper pole of the right thyroid lobe which does not clearly represent a nodule. There is a dominant nodule on the left with imaging characteristics as described below. low tsh . follow up with Dr Clifton's office endocrinology for further management including biopsy outpatient. Health Concerns: as above. Plan of Treatment: as above. Assessment: as above. Patient Instructions: Viral Pneumonia (DC)
[2025-01-23 13:07] LABS: Free T4 (Free Thyroxine) 1.01 ng/dL (0.71-1.85)
--- NOTE | 2025-01-23 13:15 | MHC.CM.PN ---
Pt. has been medically cleared to [place], he will go home via family transport, plan is self care.
== END 2025-01-23 15:06 | disposition home or self-care (01) | DRG 177 ==
LOC: HO.ED 06:53 → HO.EDOVER 08:11 → HO.ICU 08:17 → HO.IMC 01-21 15:32
PROVIDERS: Internal Medicine; Nurse Practitioner Family; Admitting Provider Internal Medicine Critical Care Medicine; Emergency Provider Student in an Organized Health Care Education/Training Program; PCP Internal Medicine; Visit Provider Internal Medicine
DX: U07.1 COVID-19 (principal); J12.82 Pneumonia due to coronavirus disease 2019; J96.01 Acute respiratory failure with hypoxia; J15.9 Unspecified bacterial pneumonia; E04.1 Nontoxic single thyroid nodule; E11.65 Type 2 diabetes mellitus with hyperglycemia; Z85.118 Personal history of other malignant neoplasm of bronchus and lung; Z79.4 Long term (current) use of insulin; Z79.899 Other long term (current) drug therapy
CPT/HCPCS: 36415; 71045; 71275; 76536; 80048; 80051; 80053; 80076; 82565; 82803; 82947; 83605; 83735; 83880; 84100; 84439; 84443; 84484; 84520; 85025; 85610; 85730; 87040; 87493; 87637; 93005; 94640; 97161; 99285; J0131; J0248; J0456; J1100; J1650; J2543; Q9967

== ENCOUNTER → 2025-01-20 03:18 | Outpatient (BNV) | payer MEDICARE, SELFPAY | PROVIDERS: Admitting Provider Internal Medicine Critical Care Medicine; Emergency Provider Student in an Organized Health Care Education/Training Program; PCP Internal Medicine; Visit Provider Internal Medicine | DX: R00.0 Tachycardia, unspecified (principal); I25.2 Old myocardial infarction | CPT/HCPCS: 93010 ==

== ENCOUNTER → 2025-01-20 03:24 | Outpatient (BNV) | payer MEDICARE, SELFPAY | PROVIDERS: Emergency Provider Student in an Organized Health Care Education/Training Program; PCP Internal Medicine; Visit Provider General Practice | DX: E04.1 Nontoxic single thyroid nodule (principal) | CPT/HCPCS: 76536 ==

== ENCOUNTER → 2025-01-20 08:07 | Outpatient (BNV) | payer MEDICARE, SELFPAY | PROVIDERS: Admitting Provider Internal Medicine Critical Care Medicine; Emergency Provider Student in an Organized Health Care Education/Training Program; PCP Internal Medicine; Visit Provider Internal Medicine | DX: U07.1 COVID-19 (principal); J96.01 Acute respiratory failure with hypoxia | CPT/HCPCS: 99232; 99239; 99499 ==

== ENCOUNTER → 2025-01-20 08:07 | Outpatient (BNV) | payer MEDICARE, SELFPAY | PROVIDERS: Admitting Provider Internal Medicine Critical Care Medicine; Emergency Provider Student in an Organized Health Care Education/Training Program; PCP Internal Medicine; Visit Provider Internal Medicine Critical Care Medicine | DX: J96.01 Acute respiratory failure with hypoxia (principal); U07.1 COVID-19; J12.82 Pneumonia due to coronavirus disease 2019 | CPT/HCPCS: 99223; 99291 ==